=== PATIENT | male | born 1995 | race Caucasian/White ===

== ENCOUNTER 2016-11-30 10:53 | Emergency (ER) | payer OTHER ==
[~2016-11-30] VITALS: Ht 175.3 cm; Wt 60.8 kg
[2016-11-30 11:08] VITALS: BP 144/81; PULSE 48; RESP 16; TEMP 97.7; O2SAT 100
[2016-11-30] MEDS ORDERED: IBUP800T23 PO (11:39)
[2016-11-30] MEDS ORDERED: PENI250T PO (11:39)
--- NOTE | 2016-11-30 11:39 | PD ---
HPI Chief Complaint: Oral / Dental Pain or Problem Time Seen by Provider: 11:26 Travel History International Travel<30 days: No Contact w/Intl Traveler<30days: No Traveled to known affect area: No History of Present Illness HPI 21-year-old male with chief complaint of right lower dental pain 3 days. Patient reports he had a decayed cracked right lower molar the last year. He denies fever or chills. He reports mild facial swelling and gum tenderness around the tooth. Symptom severity is mild. No aggravating or alleviating factors. Pain severity 4/10. PFSH Past Medical History Medical History: Denies Significant Hx Influenza Vaccination: No Past Surgical History Endocrine Surgery: Yes (RIGHT NECK LYMPH NODE A CHILD) Social History Alcohol Use: No Tobacco Use: No Substance Use: No Allergies-Medications (Allergen,Severity, Reaction): Coded Allergies: No Known Allergies (Unverified , 11/30/16) Reported Meds & Prescriptions Reported Meds & Active Scripts Active No Active Prescriptions or Reported Medications Review of Systems Except as stated in HPI: all other systems reviewed are Neg Physical Exam Narrative GENERAL: Well-nourished, well-developed patient. SKIN: Focused skin assessment warm/dry. HEAD: Normocephalic. EYES: No scleral icterus. No injection or drainage. MOUTH: Mucous membranes moist, no lesions, tongue and gums appear normal. Tooth #30 decayed and fractured with surrounding gum erythema. NECK: Supple, trachea midline. No JVD or lymphadenopathy. CARDIOVASCULAR: Regular rate and rhythm without murmurs, gallops, or rubs. RESPIRATORY: Breath sounds equal bilaterally. No accessory muscle use. Data Data Last Documented VS Vital Signs Date Time Temp Pulse Resp B/P (MAP) Pulse Ox O2 Delivery O2 Flow Rate FiO2 11/30/16 11:08 97.7 48 16 144/81 (102) 100 MDM Medical Decision Making Medical Screen Exam Complete: Yes Emergency Medical Condition: Yes Differential Diagnosis Dental caries, dental abscess, periodontal disease Narrative Course 21-year-old male with chief complaint of right lower dental pain 3 days. On exam patient has a decayed and fractured tooth with surrounding gum erythema. Patient be treated for dental infection. Referred to local dental clinics. Diagnosis Primary Impression: Dental infection Referrals: Dentist Additional Instructions: Take the medications as prescribed. Follow-up with dentist. Scripts Ibuprofen (Ibuprofen) 800 Mg Tab 800 MG PO Q8H Y for PAIN SCALE 1 TO 5, #30 TAB 0 Refills Prov: Rain Guaman 11/30/16 Penicillin V Potassium (Penicillin V Potassium) 250 Mg Tab 250 MG PO Q6H for Infection for 7 Days, #28 TAB 0 Refills Prov: Rain Guaman 11/30/16 Disposition: 01 DISCHARGE HOME Condition: Stable Rain Guaman Nov 30, 2016 11:39
== END 2016-11-30 11:45 | disposition home or self-care (01) ==
LOC: PHEFT 10:53
DX: K04.7 Periapical abscess without sinus (principal)
CPT/HCPCS: 99283